=== PATIENT | female | born 1980 | race Caucasian/White ===

== ENCOUNTER 2020-10-30 21:03 | Observation (INO) | payer OTHER ==
[~2020-10-30] VITALS: Ht 160 cm; Wt 36.0 kg
--- NOTE | 2020-10-30 21:31 | NUR ---
PT BELONGINGS PLACED IN PT BAG AND LOCKED IN SECURITY LOCKER. WENT OVER PT BELONGINGS WITH PT "BELONGING SHEET" AND PT VERIFIED ITEMS AND SIGNED SHEET. MARY ANNE WALKED TO LAB
[2020-10-30 21:43] LABS: BASOPHILS % (AUTO) 1 % (0-1); EOSINOPHILS % (AUTO) 0 % (1-7); LYMPHOCYTES % (AUTO) 11 % (22-44); MEAN CORPUSCULAR HEMOGLOBIN 27.1 pg (27.0-34.8); MEAN CORPUSCULAR HGB CONC 33.3 g/dL (32.4-35.8); MEAN PLATELET VOLUME 7.6 fL (7.4-10.4); MONOCYTES % (AUTO) 4 % (2-9); NEUTROPHILS % (AUTO) 84 % (42-75); PLATELET COUNT 432 x10^3/uL (130-400); RED BLOOD COUNT 4.58 x10^6/uL (3.82-5.3)
[2020-10-30 21:53] LABS: ANION GAP 7 mmol/L (5-15); CALCIUM 9.2 mg/dL (8.5-10.1); CHLORIDE 105 mmol/L (98-107)
[2020-10-30 21:59] LABS: AMPHETAMINE SCREEN, URINE Positive (Negative); BARBITURATE SCREEN, URINE Negative (Negative); CANNABINOID SCREEN, URINE Positive (Negative); COCAINE SCREEN, URINE Negative (Negative); METHADONE SCREEN, URINE Negative (Negative); OPIATE SCREEN, URINE Negative (Negative)
[2020-10-30 22:01] LABS: BENZODIAZEPINE SCREEN, URINE Negative (Negative)
[2020-10-30 22:05] LABS: OVALOCYTES 1+
[2020-10-30 22:06] LABS: <PLATELET ESTIMATE> INCREASED; <PLT MORPHOLOGY> NORMAL PLT MORPH; ALANINE AMINOTRANSFERASE 19 U/L (12-78); ALKALINE PHOSPHATASE 102 U/L (45-117); BILIRUBIN,TOTAL 0.4 mg/dL (0.2-1.0); CREATININE 0.83 mg/dL (0.55-1.02); TOTAL PROTEIN 7.9 g/dL (6.4-8.2)
[2020-10-30 22:07] LABS: SALICYLATE LEVEL < 1.7 mg/dL (2.8-20.0)
[2020-10-30] MEDS ORDERED: POTASSIUM CHLORIDE 20 MEQ TAB.ER.PRT ONE (22:18)
[2020-10-30] MEDS ORDERED: PLEASE ENTER ALLERGIES MC SCH (22:30)
[2020-10-30] MEDS ORDERED: POTASSIUM CHLORIDE 20 MEQ TAB.ER.PRT PO ONE (22:30)
[2020-10-30] MEDS ORDERED: FLUOXETINE HCL 20 MG CAPSULE ONE (22:37)
[2020-10-30] MEDS ORDERED: TRAZODONE 100MG TABLET ONE (22:37)
[2020-10-30] MEDS ORDERED: GABAPENTIN 300 MG CAPSULE ONE (22:37)
--- NOTE | 2020-10-30 22:45 | NUR ---
PT REQUESTING PM HOME MEDS. DR WATKINS AWARE, WILL PLACE ORDERS
--- NOTE | 2020-10-30 23:18 | NUR ---
REPORT GIVEN TO KENNEDI CONSTANTINO
--- NOTE | 2020-10-30 23:21 | NUR ---
REPORT FROM SARAH AT THIS TIME TRANSFER OF CARE, PT RESTING ON GURNEY SITTER IN SIGHT DENIES NEEDS AT THIS TIME
[2020-10-30] MEDS ORDERED: GABAPENTIN 300 MG CAPSULE PO ONE (23:30)
[2020-10-30] MEDS ORDERED: FLUOXETINE HCL 20 MG CAPSULE PO ONE (23:30)
[2020-10-30] MEDS ORDERED: TRAZODONE 100MG TABLET PO ONE (23:30)
--- NOTE | 2020-10-31 00:20 | NUR ---
PT RESTING ON GURNEY RESP EVEN AND UNLABORED UDAY SITTER IN SIGHT
--- NOTE | 2020-10-31 01:47 | NUR ---
PT RESTING ON GURNEY RESP EVEN AND UNLABORED UDAY SITTER IN SIGHT
--- NOTE | 2020-10-31 02:45 | NUR ---
PT RESTING ON GURNEY RESP EVEN AND UNLABORED UDAY SITTER IN SIGHT
--- NOTE | 2020-10-31 03:45 | NUR ---
PT RESTING ON GURNEY RESP EVEN AND UNLABORED UDAY SITTER IN SIGHT
--- NOTE | 2020-10-31 04:27 | NUR ---
packet faxed to [facility]. pt has self pay.
--- NOTE | 2020-10-31 04:46 | NUR ---
PT RESTING ON GURNEY RESP EVEN AND UNLABORED UDAY SITTER IN SIGHT
--- NOTE | 2020-10-31 05:44 | NUR ---
PT RESTING ON GURNEY RESP EVEN AND UNLABORED UDAY SITTER IN SIGHT
--- NOTE | 2020-10-31 06:40 | NUR ---
PT RESTING ON GURNEY RESP EVEN AND UNLABORED UDAY SITTER IN SIGHT
--- NOTE | 2020-10-31 06:47 | NUR ---
REPORT FROM VIRA OLIVER AT THIS TIME. [facility] IN [facility], SITTER IN DIRECT LINE OF SIGHT.
--- NOTE | 2020-10-31 08:45 | NUR ---
MEAL TRAY PROVIDED TO PT. PT STATES SHE WANTS TO SLEEP LONGER. WCTM.
--- NOTE | 2020-10-31 10:15 | NUR ---
PT RESTING ON GURNEY RESP EVEN AND UNLABORED UDAY SITTER IN SIGHT
--- NOTE | 2020-10-31 10:59 | NUR ---
PT RESTING ON GURNEY RESP EVEN AND UNLABORED UDAY, SITTER IN SIGHT.
--- NOTE | 2020-10-31 12:00 | NUR ---
THROUGHPUT RN NOTE: PSYCH PACKET FAXED TO ALL PSYCH FACILITIES: [facility], [facility], [facility], AND [facility]. AWAITING RESPONSE.
--- NOTE | 2020-10-31 13:02 | NUR ---
REPORT TO VIRA COLLIER.
--- NOTE | 2020-10-31 13:22 | NUR ---
[facility] REFUSED. MEAL PROVIDED
[2020-10-31] MEDS ORDERED: LORazepam 1MG TABLET ONE (14:00)
[2020-10-31] MEDS ORDERED: GABAPENTIN 300 MG CAPSULE ONE ×2 (14:01→19:55)
[2020-10-31] MEDS ORDERED: GABAPENTIN 300 MG CAPSULE PO SCH (15:00)
[2020-10-31] MEDS ORDERED: LORazepam 1MG TABLET PO ONE (15:00)
--- NOTE | 2020-10-31 16:17 | NUR ---
PT RESTING IN BED, FEELING MUCH BETTER AFTER MEDICATION AND FOOD. SAFETY PRECAUTIONS ON PLACE
--- NOTE | 2020-10-31 17:50 | NUR ---
Jazzy BHATTI at bedside for eval
--- NOTE | 2020-10-31 18:29 | NUR ---
MEAL PROVIDED. SAFETY PRECAUTIONS IN PLACE
--- NOTE | 2020-10-31 18:54 | NUR ---
REPORT TO RICO CONSTANTINO
[2020-10-31] MEDS ORDERED: CLON1TAB PO (19:40)
[2020-10-31] MEDS ORDERED: SERT100T32 PO (19:40)
[2020-10-31] MEDS ORDERED: QUET25TA7 PO (19:40)
[2020-10-31] MEDS ORDERED: GABA300C PO (19:40)
[2020-10-31] MEDS ORDERED: SERTRALINE 50MG TABLET ONE (19:55)
[2020-10-31] MEDS ORDERED: QUETIAPINE 25MG TABLET ONE (19:55)
[2020-10-31 20:05] VITALS: BP 98/63
--- NOTE | 2020-10-31 20:21 | NUR ---
pt seen by misha leyva. pt cleared to go home. hold lifted and signed by misha. pt states feeling good about dispo going home. pt medicated with home meds per emar. at bedside and to take her home. pt steady ambulating.
[2020-10-31] MEDS ORDERED: SERTRALINE 50MG TABLET PO ONE (20:30)
[2020-10-31] MEDS ORDERED: QUETIAPINE 25MG TABLET PO ONE (20:30)
[2020-10-31] MEDS ORDERED: GABAPENTIN 300 MG CAPSULE PO ONE (20:30)
== END 2020-10-31 20:22 | disposition home or self-care (01) ==
LOC: ED 22:49 → EDIP 23:01
PROVIDERS: ADMIT Student in an Organized Health Care Education/Training Program; ATTEND Student in an Organized Health Care Education/Training Program
DX: F41.8 Other specified anxiety disorders (principal); F43.0 Acute stress reaction; F43.11 Post-traumatic stress disorder, acute; R45.851 Suicidal ideations; Z79.899 Other long term (current) drug therapy
CPT/HCPCS: 36415; 71045; 80053; 80299; 80307; 80320; 80329; 84443; 84703; 85025; 93005; 99285; G0378; G0480